=== PATIENT | male | born 1965 | race Caucasian/White ===

== ENCOUNTER 2017-01-25 06:59 | Day surgery (SDC) | payer BC ==
[2017-01-25] MEDS ORDERED: LACTATED RINGERS 1,000 ML IV ONE (07:20)
[2017-01-25] MEDS ORDERED: MIDAZOLAM 2 MG/2 ML VIAL IVP ONE (08:11)
[2017-01-25] MEDS ORDERED: fentaNYL 100 MCG/2 ML VIAL IVP ONE (08:11)
== END 2017-01-25 07:00 | disposition home or self-care (01) ==
PROC: 0DJD8ZZ Inspection of Lower Intestinal Tract, Via Natural or Artificial Opening Endoscopic (ICD-10-PCS; principal; 2017-01-25 08:15)
DX: Z12.11 Encounter for screening for malignant neoplasm of colon (principal); K57.30 Diverticulosis of large intestine without perforation or abscess without bleeding; K64.8 Other hemorrhoids; Q43.8 Other specified congenital malformations of intestine; I10 Essential (primary) hypertension; J45.909 Unspecified asthma, uncomplicated; Z82.49 Family history of ischemic heart disease and other diseases of the circulatory system; Z83.3 Family history of diabetes mellitus
CPT/HCPCS: 45378; J7120

== ENCOUNTER 2020-06-07 08:00 | Outpatient (CLI) | payer OTHER ==
[2020-06-07 11:48] LABS: CREATININE 1.1 mg/dL (0.6-1.2); URIC ACID 5.9 mg/dL (2.6-7.2)
== END 2020-06-07 23:59 | disposition home or self-care (01) ==
LOC: LAB.WCP 08:00
PROVIDERS: ATTEND Family Medicine
DX: I10 Essential (primary) hypertension (principal); Z12.5 Encounter for screening for malignant neoplasm of prostate
CPT/HCPCS: 36415; 80048; 84153; 84550

== ENCOUNTER 2020-07-20 17:28 | Outpatient (CLI) | payer OTHER | END 2020-07-20 17:29 | disposition home or self-care (01) | LOC: COV 17:28 | PROVIDERS: ATTEND Family Medicine | DX: U07.1 COVID-19 (principal) ==

== ENCOUNTER 2020-09-30 08:00 | Outpatient (CLI) | payer OTHER ==
[2020-10-01 12:10] LABS: H. PYLORIS ANTIGEN STL NEGATIVE (Negative)
--- OUTSIDE RECORDS SUMMARY | 2020-10-06 01:51 | EXTERNAL MEDICAL SUMMARY RPT | Continuity of Care Document ---
:1965 Demographics Phone Unavailable Preferred Language pat Marital Status Unknown Episcopal Affiliation Unknown Race Unknown Ethnic Group Unknown Author Organization [place] Address [address] [place] [address] Phone Care Team Providers Name Role Phone PA-Matilda Unavailable Unavailable Young Unavailable Unavailable Problems date description facility 2017-01-25 06:59 ESSENTIAL (PR[facility] 2017-01-25 06:59 UNSPECIFIED [facility] UNCOMPLIC[facility] 2017-01-25 06:59 DVRTCLOS OF LG INT W/O [facility] [place] PERFORATION OR ABSCESS W/O BLEEDING 2017-01-25 06:59 OTHER HEMORRHOIDS [facility] 2017-01-25 06:[address] [facility] MALFORMATIONS OF INTESTINE 2017-01-25 06:59 [facility] MALIGNANT NEOPLASM OF COLON 2017-01-25 06:59 FAMILY HX OF ISCHEM HEART DIS [facility] AND OTH DIS OF THE CIRC SYS 2017-01-25 06:59 FAMILY HISTORY OF DIABETES [facility] MELLITUS 2020-06-07 08:00 ESSENTIAL (PRIMARY) [facility] 2020-06-07 08:00 ENCOUNTER FOR SCREENING FOR [facility] MALIGNANT NEOPLASM OF PROSTATE 2020-07-22 00:00:00 TSH [facility] 2020-07-22 00:00:00 Other specified viral infection [facility] 2020-07-22 00:00:00 LIPIDS [facility]CREEN [facility] 2020-07-22 00:00:00 CBC W/Diff/Plt [facility] 2020-07-22 00:00:00 COVID-19 [facility] 2020-07-22 00:00:00 Health-related behavior [facility] 2020-07-22 00:00:00 [facility] exposure [facility] 2020-07-22 00:00:00 Exercise [facility] 2020-07-22 00:00:00 Never smoker [facility] 2020-07-22 00:00:00 Alcohol use [facility] 2020-07-22 00:00:00 Tobacco smoking status NHIS [facility] 2020-07-22 00:00:00 Total score? [facility] 2020-08-10 00:00:00 Open [facility] foot [facility] toe[facility] alone, without mention of [facility] complication 2020-08-10 00:00:00 Puncture wound without foreign [facility] body, right foot, initial [facility] encounter 2020-08-10 00:00:00 Puncture [facility] foot [facility] 2020-09-15 00:00:00 Unspecified disorder of male [facility] genital organs [facility] 2020-09-15 00:00:00 [facility] 2020-09-15 00:00:00 Right testicular [facility] 2020-09-15 00:00:00 Health-related behavior [facility] 2020-09-15 00:00:00 [facility] 2020-09-15 00:00:00 Exercise [facility] 2020-09-15 00:00:00 Never smoker [facility] 2020-09-15 00:00:00 Pain in testicle [facility] 2020-09-15 00:00:00 Alcohol use [facility] 2020-09-15 00:00:00 Tobacco smoking status NHIS [facility] 2020-09-15 00:00:00 Total score? [facility] 2020-09-30 00:00 GASTRO-ESOPHAGEAL REFLUX [facility] DISEASE WITHOUT ESOPHAGITIS 2020-09-30 00:00:00 COMPREHENSIVE METABOLIC PANEL [facility] 2020-09-30 00:00:00 CBC W/Diff/Plt [facility] 2020-09-30 00:00:00 H Pylori Stool [facility] 2020-09-30 08:00 GASTRO-ESOPHAGEAL REFLUX [facility] DISEASE WITHOUT ESOPHAGITIS 2020-09-30 14:18 GASTRO-ESOPHAGEAL REFLUX [facility] DISEASE WITHOUT ESOPHAGITIS 2020-10-01 00:00 GASTRO-ESOPHAGEAL REFLUX [facility] DISEASE WITHOUT ESOPHAGITIS Allergies date description facility NO KNOWN ALLERGIES [facility] No Known Drug Allergies [facility] ADHESIVE \T\ TAPE [facility] CYCLOBENZAPRINE [facility] MEPERIDINE [facility] METHOCARBAMOL [facility] MORINDA [facility] OPUNTIA [facility] OXYCODONE [facility] NO KNOWN ENVIRONMENTAL ALLERGIES [facility] PENICILLINS [facility] CIPROFLOXACIN [facility] AMOXICILLIN [facility] SULFAMETHOXAZOLE-TRIMETHOPRIM [facility] Medications date description facility 2020-08-10 00:00:00 null [facility] 2020-08-10 00:00:00 [facility] 2020-08-10 00:00:00 CIPROFLOXACIN HCL [facility] 2020-08-10 00:00:00 [facility] 2020-08-10 00:00:00 null [facility] 2020-08-10 00:00:00 CIPROFLOXACIN HCL [facility] 2020-09-15 00:00:00 null [facility] 2020-09-15 00:00:00 null [facility] 2020-09-15 00:00:00 null [facility] 2020-09-15 00:00:00 null [facility] 2020-09-15 00:00:00 null [facility] 2020-09-15 00:00:00 null [facility] 2020-09-15 00:00:00 [facility]ALFATE [facility] 2020-09-15 00:00:00 PANTOPRAZOLE SODIUM [facility] 2020-09-15 00:00:00 OMEPRAZOLE [facility] 2020-09-15 00:00:00 null [facility] 2020-09-15 00:00:00 OMEPRAZOLE [facility] 2020-09-15 00:00:00 PANTOPRAZOLE SODIUM [facility] 2020-09-15 00:00:00 SUCRALFATE [facility] Procedures date description facility 2020-08-10 00:00:00 TDAP [facility]CTION [facility] date description facility 2020-08-10 00:00:00 [facility] date description facility 2020-09-30 00:00:00 COMPREHENSIVE METABOLIC PANEL [facility] date description facility 2020-09-30 00:00:00 CBC W[facility]Diff[facility]Plt [facility] date description facility 2020-09-30 00:00:00 [facility] Results Social History date description facility 2020-07-22 00:00:00 Never smoker [facility] date description facility 2020-09-15 00:00:00 Never smoker [facility] Social History date description facility 2020-07-22 00:00:00 Never smoker [facility] date description facility 2020-09-15 00:00:00 Never smoker [facility] date description facility [id number]
== END 2020-09-30 23:59 | disposition home or self-care (01) ==
LOC: LAB.R 08:00
PROVIDERS: ATTEND Physician Assistant Medical
DX: K21.9 Gastro-esophageal reflux disease without esophagitis (principal)
CPT/HCPCS: 87338

== ENCOUNTER 2020-10-14 19:53 | Outpatient (CLI) | payer OTHER | END 2020-10-14 19:54 | disposition home or self-care (01) | LOC: COV 19:53 | PROVIDERS: ATTEND Surgery | DX: Z01.812 Encounter for preprocedural laboratory examination (principal); R10.13 Epigastric pain; K21.9 Gastro-esophageal reflux disease without esophagitis; Z20.822 Contact with and (suspected) exposure to COVID-19 ==

== ENCOUNTER 2020-10-19 07:47 | Day surgery (SDC) | payer OTHER ==
[2020-10-19] MEDS ORDERED: LACTATED RINGERS 1,000 ML IV ONE (08:03)
[2020-10-19 08:11] VITALS: BP 137/87
== END 2020-10-19 07:48 | disposition home or self-care (01) ==
LOC: SDS 07:47
PROVIDERS: ATTEND Surgery
DX: Z53.9 Procedure and treatment not carried out, unspecified reason (principal)

== ENCOUNTER 2020-10-20 09:27 | Day surgery (SDC) | payer OTHER ==
[2020-10-20] MEDS ORDERED: LACTATED RINGERS 1,000 ML IV ONE ×2 (10:02→11:47)
[2020-10-20] MEDS ORDERED: MIDAZOLAM 2 MG/2 ML VIAL ONE (11:08)
[2020-10-20] MEDS ORDERED: fentaNYL 100 MCG/2 ML VIAL ONE ×2 (11:08→11:33)
[2020-10-20] MEDS ORDERED: LIDO GARGLE 30 ML BOTTLE ONE (11:14)
[2020-10-20] MEDS ORDERED: LIDO GARGLE 30 ML BOTTLE PO ONE (11:15)
[2020-10-20 12:04] VITALS: BP 115/91
== END 2020-10-20 09:28 | disposition home or self-care (01) ==
LOC: SDS 09:27
PROVIDERS: ATTEND Surgery
PROC: 0DB78ZX Excision of Stomach, Pylorus, Via Natural or Artificial Opening Endoscopic, Diagnostic (ICD-10-PCS; 2020-10-20)
PROC: 0DB68ZX Excision of Stomach, Via Natural or Artificial Opening Endoscopic, Diagnostic (ICD-10-PCS; 2020-10-20)
PROC: 0DB28ZX Excision of Middle Esophagus, Via Natural or Artificial Opening Endoscopic, Diagnostic (ICD-10-PCS; 2020-10-20)
PROC: 0DB48ZX Excision of Esophagogastric Junction, Via Natural or Artificial Opening Endoscopic, Diagnostic (ICD-10-PCS; 2020-10-20)
PROC: 0DB98ZX Excision of Duodenum, Via Natural or Artificial Opening Endoscopic, Diagnostic (ICD-10-PCS; principal; 2020-10-20 10:45)
DX: K21.9 Gastro-esophageal reflux disease without esophagitis (principal); R10.13 Epigastric pain; K29.70 Gastritis, unspecified, without bleeding; Z86.16 Personal history of COVID-19; I10 Essential (primary) hypertension
CPT/HCPCS: 43239; A9270; J7120

== ENCOUNTER 2021-05-10 09:54 | Outpatient (CLI) | payer OTHER ==
--- NOTE | 2021-05-10 10:32 | XRAY Report ---
PROCEDURE: Chest 2 View X-Ray INDICATIONS: BRONCHITIS TECHNIQUE: 2 view(s) of the chest. COMPARISON: 03/01/2015. FINDINGS: Surgical changes and devices: None. Lungs and pleura: No pleural effusions or pneumothorax. Increased bronchovascular markings in bilate ral hilar region are seen with mild bronchial wall thickening. No focal infiltrate. Suggestion of a s mall calcified granuloma is seen in right upper lobe, unchanged from 2015 study. Mediastinum: Mediastinal contours are normal. Heart size is normal. Bones and chest wall: No suspicious bony abnormalities. Soft tissues appear unremarkable. IMPRESSION: Suggestion of reactive airway disease such as bronchitis or asthma. Stable calcified gran uloma in right upper lobe. No focal infiltrate, pleural effusion or pneumothorax. Reviewed by: Akin Harmon MD on 05/10/2021 10:31 AM PDT Approved by: Akin Harmon MD on 05/10/2021 10:31 AM PDT Station ID: [id number]
== END 2021-05-10 23:59 | disposition home or self-care (01) ==
LOC: DI.N 09:54
PROVIDERS: ATTEND Physician Assistant Medical
DX: J40 Bronchitis, not specified as acute or chronic (principal); J84.10 Pulmonary fibrosis, unspecified

== ENCOUNTER 2022-12-13 13:58 | Outpatient (CLI) | payer OTHER ==
[2022-12-13 18:13] LABS: CALCIUM 9.3 mg/dL (8.5-10.3); CREATININE 1.3 mg/dL (0.6-1.2); POTASSIUM 4.2 mmol/L (3.5-5.0)
[2022-12-13 18:42] LABS: H. PYLORIS ANTIGEN STL NEGATIVE (Negative)
== END 2022-12-13 13:59 | disposition home or self-care (01) ==
LOC: LAB.N 13:58
PROVIDERS: ATTEND Physician Assistant Medical
DX: K21.9 Gastro-esophageal reflux disease without esophagitis (principal)
CPT/HCPCS: 36415; 80048; 87338

== ENCOUNTER 2023-03-14 10:49 | Outpatient (CLI) | payer OTHER ==
[2023-03-14 18:42] LABS: EOSINOPHILS # (AUTO) 0.2 10^3/uL (0.0-0.7); EOSINOPHILS % (AUTO) 5.2 %; HCT - HEMATOCRIT 47.5 % (42.0-52.0); HGB - HEMOGLOBIN 15.8 g/dL (14.0-18.0); LYMPHOCYTES # (AUTO) 1.3 10^3/uL (1.5-3.5); LYMPHOCYTES % (AUTO) 31.5 %; MEAN CORPUSCULAR HEMOGLOBIN 29.9 pg (27.0-31.0); MEAN CORPUSCULAR HGB CONC 33.3 g/dL (32.0-36.0); MEAN CORPUSCULAR VOLUME 89.8 fL (80.0-94.0); MONOCYTES # (AUTO) 0.4 10^3/uL (0.0-1.0); MONOCYTES % (AUTO) 10.2 %; NEUTROPHILS # (AUTO) 2.1 10^3/uL (1.5-6.6); NEUTROPHILS % (AUTO) 51.9 %; PLT - PLATELET COUNT 257 10^3/uL (130-450); RED BLOOD COUNT 5.29 10^6/uL (4.70-6.10); RED CELL DISTRIBUTION WIDTH 13.2 % (12.0-15.0)
[2023-03-14 19:28] LABS: ALBUMIN 4.4 g/dL (3.2-5.5); ALBUMIN/GLOBULIN RATIO 1.4 (1.0-2.2); ALKALINE PHOSPHATASE 56 IU/L (42-121); ALT ALANINE AMINOTRANSFERASE 31 IU/L (10-60); AST ASPARTATE AMINOTRANSFERASE 25 IU/L (10-42); BILIRUBIN,TOTAL 0.8 mg/dL (0.2-1.0); BUN - BLOOD UREA NITROGEN 21 mg/dL (6-20); CALCIUM 9.1 mg/dL (8.5-10.3); CARBON DIOXIDE - CO2 29 mmol/L (21-32); CHLORIDE 103 mmol/L (101-111); CHOL/HDL RATIO 3.5 (<5.0); CHOLESTEROL 196 mg/dL; CREATININE 1.2 mg/dL (0.6-1.2); GFR - MDRD 62 (>89); GLUCOSE 102 mg/dL (70-100); HDL CHOLESTEROL 56 mg/dL; LDL CHOLESTEROL,CALCULATED 125 mg/dL; LDL/HDL RATIO 2.2 (<3.6); POTASSIUM 4.6 mmol/L (3.5-5.0); SODIUM 137 mmol/L (135-145); TOTAL PROTEIN 7.5 g/dL (6.7-8.2); TRIGLYCERIDES 76 mg/dL; VLDL CHOLESTEROL 15 mg/dL
[2023-03-14 19:34] LABS: THYROID STIMULATING HORMONE 1.54 uIU/mL (0.34-5.60)
== END 2023-03-14 10:50 | disposition home or self-care (01) ==
LOC: LAB.N 10:49
PROVIDERS: ATTEND Physician Assistant Medical
DX: Z00.00 Encounter for general adult medical examination without abnormal findings (principal); Z12.5 Encounter for screening for malignant neoplasm of prostate
CPT/HCPCS: 36415; 80053; 80061; 83721; 84153; 84443; 85025